=== PATIENT | female | born 1955 | race Caucasian/White ===

== ENCOUNTER 2017-10-29 08:15 | Outpatient (CLI) | payer OTHER ==
[2014-09-28 17:55] VITALS: BMI 44.0
[2017-10-29 08:45] VITALS: BP 148/74; TEMP 97.8
[2017-10-29] MEDS ORDERED: INFED 1,000 MG in SODIUM CHLORIDE 500 ML IV STA (08:51)
[2017-10-29] MEDS ORDERED: INFED IVP STA (08:53)
== END 2017-10-29 08:16 | disposition home or self-care (01) ==
LOC: OPMED 08:15
PROVIDERS: ATTEND Family Medicine
DX: D50.9 Iron deficiency anemia, unspecified (principal); Z87.19 Personal history of other diseases of the digestive system
CPT/HCPCS: 96366; 96374

== ENCOUNTER 2019-02-23 11:16 | Outpatient (CLI) | payer OTHER ==
[2014-09-28 17:55] VITALS: BMI 44.0
[2019-02-23 11:29] VITALS: BP 173/76; TEMP 98
[2019-02-23] MEDS ORDERED: VENOFER 500 MG in SODIUM CHLORIDE 250 ML IV ONE (11:35)
== END 2019-02-23 11:17 | disposition home or self-care (01) ==
LOC: OPMED 11:16
PROVIDERS: ATTEND Family Medicine
DX: D50.9 Iron deficiency anemia, unspecified (principal); K90.9 Intestinal malabsorption, unspecified
CPT/HCPCS: 96365; 96367

== ENCOUNTER 2019-03-09 07:06 | Outpatient (CLI) ==
[2014-09-28 17:55] VITALS: BMI 44.0
[2019-03-09 07:20] VITALS: BP 174/89; TEMP 97.6
[2019-03-09] MEDS ORDERED: VENOFER 500 MG in SODIUM CHLORIDE 250 ML IV ONE (07:30)
== END 2019-03-09 07:07 | disposition home or self-care (01) ==
LOC: OPMED 07:06
PROVIDERS: ATTEND Family Medicine
DX: E61.1 Iron deficiency (principal); K90.9 Intestinal malabsorption, unspecified; D50.9 Iron deficiency anemia, unspecified
CPT/HCPCS: 96365; 96366